=== PATIENT | male | born 1965 | race Caucasian/White ===

== ENCOUNTER 2021-04-14 02:31 | Emergency (ER) | payer OTHER ==
[~2021-04-14] VITALS: Ht 188 cm; Wt 120.0 kg
[~2021-04-14 02:31] MED LIST: AZIT250T PO; CLIN-97 PO; DIPH25CA83 PO
[2021-04-14 02:35] VITALS: BP 162/102
[2021-04-14] MEDS ORDERED: ondansetron 4mg rapidly disintigrating tab PO ONE (03:25)
[2021-04-14] MEDS ORDERED: ketorolac trometh. 30mg/ml inj. IM ONE (03:25)
== END 2021-04-14 04:03 | disposition home or self-care (01) ==
LOC: ER 02:33
DX: M25.512 Pain in left shoulder (principal); I10 Essential (primary) hypertension; Z88.0 Allergy status to penicillin; Z79.2 Long term (current) use of antibiotics; Z79.899 Other long term (current) drug therapy
CPT/HCPCS: 93005; 96372; 99283; J1885

== ENCOUNTER 2021-04-27 03:01 | Emergency (ER) | payer OTHER ==
[~2021-04-27] VITALS: Ht 188 cm; Wt 122.7 kg
[2021-04-27 03:06] VITALS: BP 131/102
[2021-04-27] MEDS ORDERED: HYDROcodone/acetaminophen 10/325mg tab PO ONE (03:35)
[2021-04-27] MEDS ORDERED: traZODone 50mg tablet PO STA (03:35)
[2021-04-27] MEDS ORDERED: ketorolac trometh inj. 60 MG/2 ML VIAL IM ONE (03:35)
[2021-04-27] MEDS ORDERED: HYDR-3973 PO (03:49)
== END 2021-04-27 04:15 | disposition home or self-care (01) ==
LOC: ER 03:01
DX: G89.29 Other chronic pain (principal); M25.512 Pain in left shoulder; I10 Essential (primary) hypertension; Z88.0 Allergy status to penicillin; Z79.2 Long term (current) use of antibiotics; Z79.899 Other long term (current) drug therapy
CPT/HCPCS: 96372; 99283; J1885

== ENCOUNTER → 2021-07-13 | Emergency (ER) | payer OTHER ==
[~2021-07-13] VITALS: Ht 188 cm; Wt 130.4 kg
[2021-07-13 20:25] VITALS: BP 123/70
== END | disposition left against medical advice (07) ==
LOC: ER 20:22
DX: R42 Dizziness and giddiness (principal); Z53.21 Procedure and treatment not carried out due to patient leaving prior to being seen by health care provider
CPT/HCPCS: 93005; 99283